=== PATIENT | female | born 1990 | race Caucasian/White ===

== ENCOUNTER 2016-07-02 16:42 | Outpatient (CLI) | payer BC, OTHER ==
[~2016-07-02] VITALS: Ht 165.1 cm; Wt 125.0 kg
[~2016-07-02 16:42] MED LIST: NOHOMEMEDS; PERCOCET 5/31 TABLET PO; PRENATAL TABLE1 EAC3 PO; VIBRAMYCIN100 MG PO
[2016-07-02 17:05] VITALS: BP 136/66
[2016-07-02] MEDS ORDERED: ASPIR 8181 M1 PO (17:21)
[2016-07-02] MEDS ORDERED: PRENATAL TABLE1 EAC3 PO (17:21)
[2016-07-02 18:09] VITALS: BP 140/84
[2016-07-02 18:10] LABS: BASOPHIL COUNT 0.1 K/uL (0-0.1); EOSINOPHIL (%) 1.1 % (0-5); EOSINOPHIL COUNT 0.1 K/uL (0-0.3); HEMATOCRIT 39.1 % (36.0-46.0); IMMATURE GRANULOCYTE (%) 0.7 % (0.0-0.7); IMMATURE GRANULOCYTE COUNT 0.1 K/uL; INSTRUMENT ABS NEUTROPHIL CT 7.4 K/uL; LYMPHOCYTE COUNT 1.7 K/uL (1.0-2.8); MCH 29.9 PG (29.0-34.0); MCHC 34.5 G/DL (30.0-36.0); MCV 86.5 FL (83-99); MEAN PLAT.VOLUME 11.4 uM^3 (9.5-12.4); MONOCYTE (%) 9.5 % (3-12); NEUTROPHIL (%) 71.7 % (45-76); NEUTROPHIL COUNT 7.4 K/uL (1.8-6.4); PLATELET COUNT 202 K/uL (156-360); RBC DIS.WIDTH-CV 12.4 % (11.8-14.6); RBC DIS.WIDTH-SD 38.6 % (39-53); RED BLOOD COUNT 4.52 M/uL (3.80-5.20); WHITE BLOOD COUNT 10.3 K/uL (4.1-10.2)
[2016-07-02 18:15] LABS: ANION GAP 9 MEQ/L (2-14); CHLORIDE 107 MEQ/L (99-109); POTASSIUM 3.8 MEQ/L (3.7-5.4); SAMPLE HEMOLYSIS CHECK 0; SAMPLE ICTERIC CHECK 0; SAMPLE LIPEMIA CHECK 0; SODIUM 136 MEQ/L (136-147); TOTAL BILIRUBIN 0.2 MG/DL (0.0-1.0)
[2016-07-02 18:21] LABS: ALKALINE PHOSPHATASE 771 IU/L (3-129); GFR ESTIMATE (CALCULATED) > 59 mL/min/; GLUCOSE 103 mg/dL (70-99); UREA NITROGEN (BUN) 8 mg/dL (9-23); URIC ACID 5.5 mg/dL (3.1-9.2)
[2016-07-02 18:26] LABS: ADD MIUA? NO; BILIRUBIN NEGATIVE; BLOOD NEGATIVE; COLOR YELLOW ((YELLOW)); GLUCOSE (STRIP) NEGATIVE; KETONES NEGATIVE; LEUKOCYTES NEGATIVE; NITRITE NEGATIVE; PROTEIN (STRIP) NEGATIVE; SPECIFIC GRAVITY 1.011 (1.000-1.030); UCUL ADDED? NO; UROBILINOGEN 0.2 MG/DL (0.2-1.0)
[2016-07-02 19:08] LABS: UR CREATININE CONCENTRATION 90.6 MG/DL
== END 2016-07-02 19:35 | disposition home or self-care (01) ==
LOC: LDRP-OP 16:42 → 2WEST 16:43 → LDRP-OP 08-14 14:15
PROVIDERS: Obstetrics & Gynecology
DX: O14.93 Unspecified pre-eclampsia, third trimester (principal); O36.5930 Maternal care for other known or suspected poor fetal growth, third trimester, not applicable or unspecified; Z3A.38 38 weeks gestation of pregnancy
CPT/HCPCS: 59025; 80053; 81003; 82570; 84156; 84550; 85025; G0378

== ENCOUNTER 2016-07-04 07:38 | Inpatient (IN) | payer BC, OTHER ==
[2016-07-04] VITALS (28 sets, daily range): BP systolic 130–174; BP diastolic 67–90
[~2016-07-04 07:38] MED LIST changes: +ASPIR 8181 M1 PO
[2016-07-04 09:58] LABS: BASOPHIL COUNT 0.1 K/uL (0-0.1); EOSINOPHIL (%) 1.5 % (0-5); EOSINOPHIL COUNT 0.2 K/uL (0-0.3); HEMATOCRIT 41.8 % (36.0-46.0); IMMATURE GRANULOCYTE (%) 0.7 % (0.0-0.7); IMMATURE GRANULOCYTE COUNT 0.1 K/uL; INSTRUMENT ABS NEUTROPHIL CT 8.4 K/uL; LYMPHOCYTE COUNT 1.7 K/uL (1.0-2.8); MCH 30.1 PG (29.0-34.0); MCHC 34.7 G/DL (30.0-36.0); MCV 86.9 FL (83-99); MEAN PLAT.VOLUME 11.6 uM^3 (9.5-12.4); MONOCYTE (%) 9.4 % (3-12); MONOCYTE COUNT 1.1 K/uL (0-0.8); NEUTROPHIL (%) 73.3 % (45-76); NEUTROPHIL COUNT 8.4 K/uL (1.8-6.4); PLATELET COUNT 216 K/uL (156-360); RBC DIS.WIDTH-CV 12.4 % (11.8-14.6); RBC DIS.WIDTH-SD 39.1 % (39-53); RED BLOOD COUNT 4.81 M/uL (3.80-5.20); WHITE BLOOD COUNT 11.5 K/uL (4.1-10.2)
[2016-07-05] VITALS (23 sets, daily range): BP systolic 115–181; BP diastolic 65–96
[2016-07-06] VITALS (14 sets, daily range): BP systolic 124–156; BP diastolic 59–82
[2016-07-06 10:30] LABS: HEMATOCRIT 40.1 % (36.0-46.0); MCH 29.7 PG (29.0-34.0); MCHC 33.7 G/DL (30.0-36.0); MCV 88.3 FL (83-99); MEAN PLAT.VOLUME 11.2 uM^3 (9.5-12.4); PLATELET COUNT 185 K/uL (156-360); RBC DIS.WIDTH-CV 12.3 % (11.8-14.6); RBC DIS.WIDTH-SD 39.7 % (39-53); RED BLOOD COUNT 4.54 M/uL (3.80-5.20); WHITE BLOOD COUNT 12.3 K/uL (4.1-10.2)
[2016-07-06 10:39] LABS: CHLORIDE 106 mEq/L (99-109); POTASSIUM 3.7 mEq/L (3.7-5.4); SODIUM 135 mEq/L (136-147)
[2016-07-06 10:42] LABS: GLUCOSE 69 mg/dL (70-99)
[2016-07-06 10:43] LABS: ANION GAP 11 MEQ/L (2-14)
[2016-07-06 10:44] LABS: TOTAL BILIRUBIN 0.5 mg/dL (0.0-1.0)
[2016-07-06 10:45] LABS: ALKALINE PHOSPHATASE 957 IU/L (3-129); GFR ESTIMATE (CALCULATED) > 59 mL/min/
[2016-07-06 10:46] LABS: UREA NITROGEN (BUN) 5 mg/dL (9-23)
[2016-07-06] MEDS ORDERED: ENDOCET 5-3251 EACH PO (19:20)
[2016-07-06] MEDS ORDERED: IBUPROFEN800 MG PO (19:20)
[2016-07-07 03:00] VITALS: BP 117/57
[2016-07-07 05:23] LABS: BASOPHIL COUNT 0.1 K/uL (0-0.1); EOSINOPHIL (%) 1.6 % (0-5); EOSINOPHIL COUNT 0.2 K/uL (0-0.3); HEMATOCRIT 33.1 % (36.0-46.0); IMMATURE GRANULOCYTE (%) 0.7 % (0.0-0.7); IMMATURE GRANULOCYTE COUNT 0.1 K/uL; INSTRUMENT ABS NEUTROPHIL CT 7.8 K/uL; LYMPHOCYTE COUNT 1.7 K/uL (1.0-2.8); MCH 30.3 PG (29.0-34.0); MCHC 34.4 G/DL (30.0-36.0); MEAN PLAT.VOLUME 11.2 uM^3 (9.5-12.4); MONOCYTE (%) 11.5 % (3-12); MONOCYTE COUNT 1.3 K/uL (0-0.8); NEUTROPHIL (%) 70.7 % (45-76); NEUTROPHIL COUNT 7.8 K/uL (1.8-6.4); PLATELET COUNT 162 K/uL (156-360); RBC DIS.WIDTH-CV 12.3 % (11.8-14.6); RBC DIS.WIDTH-SD 39.5 % (39-53); RED BLOOD COUNT 3.76 M/uL (3.80-5.20); WHITE BLOOD COUNT 11.1 K/uL (4.1-10.2)
[2016-07-07 19:00] VITALS: BP 131/66
[2016-07-07 23:00] VITALS: BP 129/64
[2016-07-08 08:30] VITALS: BP 139/65
[2016-07-08 15:35] VITALS: BP 141/95
[2016-07-08 19:32] VITALS: BP 123/67
[2016-07-08 22:58] VITALS: BP 129/69
[2016-07-09 03:31] VITALS: BP 135/84
[2016-07-09 07:58] VITALS: BP 140/70
[2016-07-09 11:45] VITALS: BP 145/75
== END 2016-07-09 14:20 | disposition home or self-care (01) | DRG 765 ==
LOC: LDRP-OP 07:38 → 2WEST 07:39 → LDRP-OP 08-14 20:07
PROVIDERS: Midwife; Obstetrics & Gynecology
PROC: 10D00Z1 Extraction of Products of Conception, Low, Open Approach (ICD-10-PCS; principal; 2016-07-06)
DX: O62.0 Primary inadequate contractions (principal); O15.1 Eclampsia complicating labor; O16.4 Unspecified maternal hypertension, complicating childbirth; O99.214 Obesity complicating childbirth; Z68.41 Body mass index [BMI] 40.0-44.9, adult; O36.5930 Maternal care for other known or suspected poor fetal growth, third trimester, not applicable or unspecified; O13.4 Gestational [pregnancy-induced] hypertension without significant proteinuria, complicating childbirth; Z37.0 Single live birth; O69.81X0 Labor and delivery complicated by cord around neck, without compression, not applicable or unspecified; Z3A.38 38 weeks gestation of pregnancy; E66.9 Obesity, unspecified
CPT/HCPCS: 80053; 85025; 85027; 86900; 86901; C1755; G0378; J0595; J0690; J1170; J2175; J2274; J2405; J2590; J2795; J3010; J7120